=== PATIENT | female | born 2000 | race Caucasian/White ===

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

== ENCOUNTER 2022-01-26 17:00 | Emergency (ER) | payer OTHER, SELFPAY ==
[2022-01-26 17:10] VITALS: BP 136/48; PULSE 99; RESP 16; TEMP 37.1; O2SAT 100
--- NOTE | 2022-01-26 17:30 | ED.URI ---
HPI - URI/Sore Throat General Chief Complaint: Upper Respiratory Infection Stated Complaint: cough Time Seen by Provider: 01/26/22 17:30 Source: patient, RN notes reviewed and old records reviewed Mode of arrival: ambulatory Limitations: no limitations History of Present Illness HPI Narrative: 22-year-old female with a history of asthma presents to the [facility] with a intermittent cough for the last 2 to 3 weeks. Has used her nebulizer a couple of times. States that she does have enough of her nebulizer and her MDI. Denies any difficulty breathing, fevers, nausea, vomiting or chest pain. MD elicited complaint: cough Related Data Home Medications Medication Instructions Recorded Confirmed albuterol sulfate 2.5 mg/3 mL 2.5 mg inhalation DIRECTED 01/26/22 01/26/22 (0.083 %) solution for nebulization albuterol sulfate 90 mcg/actuation 90 mcg inhalation DIRECTED 01/26/22 01/26/22 aerosol inhaler Allergies Allergy/AdvReac Type Severity Reaction Status Date / Time No Known Allergies Allergy Verified 01/26/22 17:14 Review of Systems Review of Systems: All systems reviewed & are unremarkable except as noted in HPI and below Constitutional: Constitutional: Reports no additional constitutional complaints, Denies chills and Denies fever(s) Eyes: Eyes: Reports no additional eye complaints ENT: Reports system reviewed and no additional complaints, except as documented Cardiovascular: Cardiovascular: Reports no additional cardiovascular complaints Respiratory: Respiratory: Reports as per HPI, Denies chest congestion, Reports cough and Denies dyspnea Gastrointestinal: Gastrointestinal: Reports no additional gastrointestinal complaints Musculoskeletal: Musculoskeletal: Reports no additional musculoskeletal complaints Integumentary/Breasts: Skin/Breast: Reports system reviewed and no additional complaints, except as docu Neurologic: Reports system reviewed and no additional complaints, except as documented Psychiatric: Psychiatric: Reports no additional psychiatric complaints Allergic/Immunologic: Allergic/Immunologic: Reports no additional allergic/immunologic complaints PMFSH Past Medical History Medical History Asthma Brooke de Meeks syndrome Social History Social History Smoking status: Never smoker Alcohol intake: never Substance use: never Gender identity (if verbalized by the patient): Female Comments At the time of my signature, I reviewed and agree with the nursing past medical, surgical, social, and family history. There is no relevant family history pertinent to the patient complaint. Exam Const: General: healthy appearing, no acute distress and alert Nutritional Appearance: well nourished Orientation/consciousness: patient oriented x3 Limitations: no limitations HENMT: Head: normal to inspection Ears: external ears normal, TM's normal bilaterally and EAC's normal Eyes: General: appearance normal, both eyes and all related structures Pupils: Equal, round and reactive pupils present Neck: Neck: normal visual inspection, no lymphadenopathy and no meningeal signs Chest: Chest palpation & inspection: normal inspection of the chest Resp: Effort & Inspection: normal respiratory effort and no use of accessory muscles Auscultation: clear to auscultation bilaterally, no crackles, no rales, no rhonchi and wheezes expiratory wheezes and right lower Cardio: Rate: regular rate Rhythm: regular rhythm Back/Spine/Pelvis: Cervical Spine: normal cervical lordosis Thoracic/Lumbar Spine: thoracic and lumbar spine normal to inspection Skin: General skin exam: normal color Rashes: no rashes Wounds: no wounds Neuro: General: patient oriented x3, moves all extremities, no meningeal signs and no focal motor deficits Cranial nerves: Yes Equal, round and reactive pupils present
== END 2022-01-26 17:46 | disposition home or self-care (01) ==
PROVIDERS: Emergency Provider Nurse Practitioner
DX: J45.909 Unspecified asthma, uncomplicated (principal); Q87.19 Other congenital malformation syndromes predominantly associated with short stature
CPT/HCPCS: 99213; G0463

== ENCOUNTER 2022-02-10 16:30 | Emergency (ER) | payer OTHER, SELFPAY ==
--- NOTE | ~2022-02-10 | XR_ITS ---
EXAMINATION: XR chest 1V portable 02/10/2022 17:20 INDICATION: Cough and fever. History of asthma. PROCEDURE: 2 view chest COMPARISON: 07/13/2015 FINDINGS: The lungs are clear. The cardiomediastinal silhouette is within normal limits. There are no pleural effusions. There is no pneumothorax suspected. IMPRESSION: 1: NO ACUTE CARDIOPULMONARY DISEASE. Reviewed, dictated and finalized at location A.
[2022-02-10 16:32] VITALS: BP 136/83; PULSE 112; RESP 20; TEMP 38.1; O2SAT 98
--- NOTE | 2022-02-10 17:06 | ED.FEVER ---
HPI - Fever General Chief Complaint: Fever Stated Complaint: Cough Time Seen by Provider: 02/10/22 16:51 Source: patient and RN notes reviewed Mode of arrival: ambulatory Limitations: no limitations History of Present Illness HPI Narrative: This is a 22 year old female who presents for evaluation of cough for 3 weeks. She reports having nonproductive cough for 3 weeks. She was evaluated at Urgent care 1 week ago and she was prescribed prednisone. She states she is still having a cough. She has mid chest pain only when she coughs. She reports runny nose but denies nausea, vomiting, ear ache, sore throat. She denies shortness of breath. She was found to have fever in ER , and she was not aware of having fever at home. She works at a daycare. Related Data Home Medications Medication Instructions Recorded Confirmed albuterol sulfate 2.5 mg/3 mL 2.5 mg inhalation DIRECTED 01/26/22 01/26/22 (0.083 %) solution for nebulization albuterol sulfate 90 mcg/actuation 90 mcg inhalation DIRECTED 01/26/22 01/26/22 aerosol inhaler Allergies Allergy/AdvReac Type Severity Reaction Status Date / Time No Known Allergies Allergy Verified 02/10/22 16:40 Review of Systems Review of Systems: All systems reviewed & are unremarkable except as noted in HPI and below Constitutional: Constitutional: Denies chills, Denies fatigue and Denies fever(s) ENT: Denies nasal congestion and Denies sore throat Respiratory: Respiratory: Denies chest congestion, Reports cough and Denies dyspnea Gastrointestinal: Gastrointestinal: Denies abdominal pain, Denies diarrhea, Denies nausea and Denies vomiting Genitourinary: Genitourinary: Denies hematuria, Denies nocturia and Denies dysuria Musculoskeletal: Musculoskeletal: Denies back pain and Denies myalgias PMFSH Past Medical History Medical History Asthma Brady de Meeks syndrome Social History Social History Smoking status: Never smoker Alcohol intake: never Substance use: never Gender identity (if verbalized by the patient): Female Exam Const: General: alert Orientation/consciousness: patient oriented x3 Limitations: no limitations HENMT: Ears: TM abnormal erythematous on the left General nose exam: Normal external nose present Mouth: Yes Normal oral and palatal mucosa present and Yes lip normal Throat: posterior oropharynx normal and uvula midline Eyes: Pupils: Equal, round and reactive pupils present EOM: EOMs intact bilaterally Neck: Neck: normal visual inspection Resp: Effort & Inspection: normal respiratory effort Auscultation: clear to auscultation bilaterally Cardio: Rate: regular rate Rhythm: regular rhythm Heart sounds: no murmurs GI: GI Palp: Yes Soft to palpation, No Tenderness to palpation present (GI), No Guarding due to palpation present (GI) and No Rigid due to palpation Auscultation: normal bowel sounds : General: Yes no CVA tenderness Back/Spine/Pelvis: Back: no CVA tenderness Skin: General skin exam: normal color Rashes: no rashes Wounds: no wounds Neuro: General: patient oriented x3, moves all extremities and CN's II-XI intact bilaterally Extrem: General: normal to inspection Psych: Appearance: grossly normal Mental Status: mental status grossly normal Affect: normal affect Attitude: cooperative Course Reevaluation(s) Reevaluation #1: PAtient states she feels fine. Chest xray is clear. she has no abdominal pain, urinary symptoms. her left ear does look infected so will start on antibiotics for that. Date: 02/10/22 Time: 18:38 Vital Signs Vital signs: Vital Signs Temperature 100.6 F H 02/10/22 16:32 Pulse Rate 112 H 02/10/22 16:32 Respiratory Rate 20 02/10/22 16:32 Blood Pressure 136/83 02/10/22 16:32 Pulse Oximetry 98 02/10/22 16:32 Temperature 99.6 F 02/10/22 17:50
[2022-02-10] MEDS: ACETAMINOPHEN 500 MG TABLET 1000 MG PO (17:17)
[2022-02-10 17:50] VITALS: TEMP 37.6
[2022-02-10 18:18] LABS: Influenza A QL RT-PCR Negative (Negative); Influenza B QL RT-PCR Negative (Negative); SARS-CoV-2 RNA PCR Negative
== END 2022-02-10 18:53 | disposition home or self-care (01) ==
PROVIDERS: Emergency Provider General Practice
DX: R05.9 Cough, unspecified (principal); H66.92 Otitis media, unspecified, left ear; Z20.822 Contact with and (suspected) exposure to COVID-19; J45.909 Unspecified asthma, uncomplicated
CPT/HCPCS: 71045; 87081; 87502; 87880; 99283; A9270; C9803; U0003; U0005

== ENCOUNTER 2022-05-19 20:19 | Emergency (ER) | payer OTHER, SELFPAY ==
[2022-05-19 21:08] VITALS: BP 135/92; PULSE 91; RESP 14; TEMP 37.6; O2SAT 100
--- NOTE | 2022-05-20 00:04 | ED.GENADULT ---
HPI - General Adult General Chief complaint: Eye Problems Stated complaint: right eye redness Time Seen by Provider: 05/19/22 23:39 History of Present Illness HPI narrative: Is a 22-year-old female who presents the emergency department with chief complaint of right eye redness. Patient reports that she had no visual changes but reports she has had some discharge and has had injection of her conjunctive on the right eye. The patient states that there is no foreign body sensation but does report that her eye itches. The patient reports she has normal vision without eye patient reports no trauma reports that she was recently seen in urgent care and diagnosed with cellulitis of her left upper extremity and has been taking what she believes is Keflex 3 times a day. The patient reports no nasal drainage denies pain in her eye. Related Data Home Medications Medication Instructions Recorded Confirmed albuterol sulfate 2.5 mg/3 mL 2.5 mg inhalation DIRECTED 01/26/22 01/26/22 (0.083 %) solution for nebulization albuterol sulfate 90 mcg/actuation 90 mcg inhalation DIRECTED 01/26/22 01/26/22 aerosol inhaler Allergies Allergy/AdvReac Type Severity Reaction Status Date / Time No Known Allergies Allergy Verified 02/10/22 16:40 Review of Systems Review of Systems: A 10 system review of systems was completed on the patient and is negative except for what is stated in the HPI. Nursing and ancillary documentation was reviewed. [facility] Past Medical History Medical History Asthma Moberly de Meeks syndrome Social History Social History Smoking status: Never smoker Alcohol intake: never Substance use: never Gender identity (if verbalized by the patient): Female Exam Narrative: GENERAL: Well-appearing, well-nourished, and in no acute distress. HEAD: Normocephalic, atraumatic. EYES: PERRLA and EOMI. right eye conjunctive a is injected. There is some matting of the eyelashes. Pupils reactive ENT: Nares clear, no rhinorrhea or epistaxis. Mucous membranes moist. NECK: Supple. CHEST: Clear to auscultation. No respiratory distress. HEART: Regular rate and rhythm. No murmur heard. Normal peripheral pulses. ABDOMEN: Soft, nontender, nondistended, normal active bowel sounds. EXTREMITIES: Normal range of motion. No edema. SKIN: Warm, dry, no rash. NEURO: No focal deficits. Alert and oriented x3. PSYCH: Normal mood and affect. Course Course Emergency Course: Tonometry was done on both eyes and the patient had a pressure of 15 in both eyes Vital Signs Vital signs: Vital Signs Temperature 37.6 C 05/19/22 21:08 Pulse Rate 91 05/19/22 21:08 Respiratory Rate 14 05/19/22 21:08 Blood Pressure 135/92 H 05/19/22 21:08 Pulse Oximetry 100 05/19/22 21:08 Oxygen Delivery Room Air 05/19/22 21:08 Temperature 37.6 C 05/19/22 21:08 Pulse Rate 91 05/19/22 21:08 Respiratory Rate 14 05/19/22 21:08 Blood Pressure 135/92 H 05/19/22 21:08 Pulse Oximetry 100 05/19/22 21:08 Oxygen Delivery Room Air 05/19/22 21:08 Medical Decision Making Vital Signs Vital Signs: Vital Signs Temperature 37.6 C 05/19/22 21:08 Pulse Rate 91 05/19/22 21:08 Respiratory Rate 14 05/19/22 21:08 Blood Pressure 135/92 H 05/19/22 21:08 Pulse Oximetry 100 05/19/22 21:08 Oxygen Delivery Room Air 05/19/22 21:08 Temperature 37.6 C 05/19/22 21:08 Pulse Rate 91 05/19/22 21:08 Respiratory Rate 14 05/19/22 21:08 Blood Pressure 135/92 H 05/19/22 21:08 Pulse Oximetry 100 05/19/22 21:08 Oxygen Delivery Room Air 05/19/22 21:08 Discharge Plan Discharge Clinical Impression: Acute conjunctivitis of right eye Patient Disposition: Home, Self-Care Condition: Stable Instructions: Antibiotic Form, Conjunctivitis (ED) Prescriptions: New
[2022-05-20 00:37] VITALS: PULSE 89; RESP 18; O2SAT 97
[2022-05-20 00:41] VITALS: PULSE 88; RESP 18; O2SAT 100
== END 2022-05-20 00:51 | disposition home or self-care (01) ==
PROVIDERS: Emergency Provider Emergency Medicine; PCP Family Medicine
DX: H10.31 Unspecified acute conjunctivitis, right eye (principal); J45.909 Unspecified asthma, uncomplicated; Q87.19 Other congenital malformation syndromes predominantly associated with short stature
CPT/HCPCS: 99283; A9270

== ENCOUNTER 2023-01-10 16:34 | Emergency (ER) | payer OTHER, SELFPAY ==
--- NOTE | 2023-01-10 16:38 | ED.URI ---
HPI - URI/Sore Throat General Chief Complaint: Upper Respiratory Infection Stated Complaint: Cough Time Seen by Provider: 01/10/23 16:43 Source: patient, RN notes reviewed and old records reviewed Mode of arrival: ambulatory Limitations: no limitations History of Present Illness HPI Narrative: 22-year-old female presents to the [facility] with a cough for 2 weeks. States that she took some Mucinex with no relief. At 1st denied any other treatment prior to arrival. Related Data Allergies Allergy/AdvReac Type Severity Reaction Status Date / Time No Known Allergies Allergy Verified 01/10/23 16:44 Review of Systems Review of Systems: All systems reviewed & are unremarkable except as noted in HPI and below Constitutional: Constitutional: Reports no additional constitutional complaints Eyes: Eyes: Reports no additional eye complaints ENT: Reports system reviewed and no additional complaints, except as documented Cardiovascular: Cardiovascular: Reports no additional cardiovascular complaints, Denies chest pain and Denies dyspnea Respiratory: Respiratory: Reports as per HPI, Denies chest congestion, Reports cough, Denies dyspnea and Denies wheezing Gastrointestinal: Gastrointestinal: Reports no additional gastrointestinal complaints, Denies abdominal pain, Denies nausea and Denies vomiting Musculoskeletal: Musculoskeletal: Reports no additional musculoskeletal complaints Integumentary/Breasts: Skin/Breast: Reports system reviewed and no additional complaints, except as docu Neurologic: Reports system reviewed and no additional complaints, except as documented Psychiatric: Psychiatric: Reports no additional psychiatric complaints Allergic/Immunologic: Allergic/Immunologic: Reports no additional allergic/immunologic complaints PMFSH Past Medical History Medical History Asthma Brooke de Meeks syndrome Social History Social History Smoking status: Never smoker Alcohol intake: never Substance use: never Gender identity (if verbalized by the patient): Female Comments At the time of my signature, I reviewed and agree with the nursing past medical, surgical, social, and family history. There is no relevant family history pertinent to the patient complaint. Exam Const: General: cooperative, healthy appearing, comfortable, no acute distress, well developed, alert and well nourished Nutritional Appearance: well nourished and obese Orientation/consciousness: patient oriented x3 Limitations: no limitations HENMT: Head: normal to inspection Ears: hearing grossly normal bilaterally and external ears normal Face/Nose/Sinus: Normal external nose present, Normal nares present, Normal nasal mucous membranes and turbinates present and normal facial exam Face and sinus: normal facial exam Mouth: Yes Normal oral and palatal mucosa present, Yes lip normal and Yes moist mucous membranes Throat: posterior oropharynx normal, uvula midline and postnasal drainage Eyes: General: appearance normal, both eyes and all related structures Alignment and Position: alignment normal Periorbital: periorbital findings normal Pupils: Equal, round and reactive pupils present EOM: EOMs intact bilaterally Neck: Neck: normal visual inspection, full ROM, no lymphadenopathy and no meningeal signs Chest: Chest palpation & inspection: normal inspection of the chest Resp: Effort & Inspection: normal respiratory effort and able to speak in complete sentences Auscultation: clear to auscultation bilaterally, no crackles, no rales, no rhonchi and no wheezes Cardio: Rate: regular rate Rhythm: regular rhythm Back/Spine/Pelvis: Cervical Spine: cervical ROM normal Thoracic/Lumbar Spine: No thoracic spinal tenderness Skin: General skin exam: normal color and no rashes or lesions noted Lesions: no lesions Rashes: no rashes Wounds: no wounds
[2023-01-10 16:42] VITALS: BP 124/66; PULSE 79; RESP 16; TEMP 37.3; O2SAT 100
[2023-01-10 16:44] VITALS: BP 124/66; PULSE 79; RESP 16; TEMP 37.3; O2SAT 100
== END 2023-01-10 16:56 | disposition home or self-care (01) ==
PROVIDERS: Emergency Provider Nurse Practitioner; PCP Family Medicine
DX: J40 Bronchitis, not specified as acute or chronic (principal); R09.82 Postnasal drip
CPT/HCPCS: 99213; G0463

== ENCOUNTER 2023-03-07 18:09 | Emergency (ER) | payer BC, SELFPAY ==
[2023-03-07 18:19] VITALS: BP 136/88; PULSE 74; RESP 16; TEMP 37.4; O2SAT 99
--- NOTE | 2023-03-07 18:29 | ED.GENADULT ---
HPI - General Adult General Chief complaint: Dental/Oral Stated complaint: right side tooth pain Time Seen by Provider: 03/07/23 18:29 Source: patient, RN notes reviewed and old records reviewed Mode of arrival: ambulatory Limitations: no limitations History of Present Illness HPI narrative: 23-year-old female presents to the [facility] with right-sided jaw pain. Patient states that it started with her right ear yesterday, moved to the left side for little while when she rolled over at night in moved back to the right lower jaw. No swelling or erythema currently. Onset (ago): day(s) (1) Related Data Allergies Allergy/AdvReac Type Severity Reaction Status Date / Time No Known Allergies Allergy Verified 03/07/23 18:18 Review of Systems Review of Systems: All systems reviewed & are unremarkable except as noted in HPI and below Constitutional: Constitutional: Reports no additional constitutional complaints Eyes: Eyes: Reports no additional eye complaints ENT: Reports as per HPI Cardiovascular: Cardiovascular: Reports no additional cardiovascular complaints, Denies chest pain and Denies dyspnea Respiratory: Respiratory: Reports no additional respiratory complaints, Denies chest congestion, Denies cough and Denies dyspnea Gastrointestinal: Gastrointestinal: Reports no additional gastrointestinal complaints, Denies abdominal pain, Denies nausea and Denies vomiting Musculoskeletal: Musculoskeletal: Reports no additional musculoskeletal complaints Integumentary/Breasts: Skin/Breast: Reports system reviewed and no additional complaints, except as docu Neurologic: Reports system reviewed and no additional complaints, except as documented Psychiatric: Psychiatric: Reports no additional psychiatric complaints Allergic/Immunologic: Allergic/Immunologic: Reports no additional allergic/immunologic complaints PMFSH Past Medical History Medical History Asthma [place] syndrome Social History Social History Smoking status: Never smoker Alcohol intake: never Substance use: never Gender identity (if verbalized by the patient): Female Comments At the time of my signature, I reviewed and agree with the nursing past medical, surgical, social, and family history. There is no relevant family history pertinent to the patient complaint. Exam Const: General: cooperative, healthy appearing, comfortable, no acute distress, well developed, alert and well nourished Nutritional Appearance: well nourished Orientation/consciousness: patient oriented x3 Limitations: no limitations HENMT: Head: normal to inspection Ears: hearing grossly normal bilaterally, external ears normal, TM's normal bilaterally and EAC's normal Face/Nose/Sinus: Normal external nose present, Normal nares present, Normal nasal mucous membranes and turbinates present and normal facial exam Face and sinus: normal facial exam, sinuses nontender and face symmetric Mouth: Yes Normal oral and palatal mucosa present, Yes lip normal, Yes tongue normal and Yes moist mucous membranes Throat: posterior oropharynx normal and uvula midline Eyes: General: appearance normal, both eyes and all related structures Alignment and Position: alignment normal Periorbital: periorbital findings normal Pupils: Equal, round and reactive pupils present EOM: EOMs intact bilaterally Neck: Neck: normal visual inspection, full ROM, no lymphadenopathy and no meningeal signs Chest: Chest palpation & inspection: normal inspection of the chest Resp: Effort & Inspection: normal respiratory effort and able to speak in complete sentences Auscultation: clear to auscultation bilaterally, no crackles, no rales, no rhonchi and no wheezes Cardio: Rate: regular rate Rhythm: regular rhythm Back/Spine/Pelvis: Cervical Spine: cervical ROM normal Skin: General skin exam: normal col
== END 2023-03-07 18:56 | disposition home or self-care (01) ==
PROVIDERS: Emergency Provider Nurse Practitioner; PCP Family Medicine
DX: R68.84 Jaw pain (principal); J45.909 Unspecified asthma, uncomplicated
CPT/HCPCS: 99211; G0463

== ENCOUNTER 2025-01-15 14:13 | Emergency (ER) | payer BC, SELFPAY ==
--- OUTSIDE RECORDS SUMMARY | 2025-01-15 14:19 | XMS_ITS | Clinical Summary ---
Author Organization [facility] [address] Address [address] [place] [address] Care Team Providers Care Test Driver Name Role Phone Randall Leong MD Primary Care Provider [phone] Allergies No known active allergies Medications albuterol HFA (PROVENTIL HFA,VENTOLIN HFA,PROAIR HFA) 90 mcg/actuation inhaler Inhale 2 puffs every 4 (four) hours as needed 7 Active etonogestreL (NEXPLANON) 68 mg implant Inject 1 each (68 mg total) under the skin continuously as needed 9 Active OptiChamber Marilin [facility] spacer as directed 2 Active budesonide-form oteroL (SYMBICORT) 160-4.5 mcg/actuation inhaler Inhale 2 puffs 2 (two) times a day Rinse mouth with water after use. Do not swallow. 9500 g 2 2 Active Additional Information Patient not taking.Reported on 12/31/2024 Active Problems Problem Noted Date Diagnosed Date Morbid obesity with BMI of 40.0-44.9, adult 07/04 Otitis externa 05/09/2023 Assessment & Plan (01/05/2025 2:42 PM CDT): She has slight moisture involving the left ear canal. After cleaning I applied CSF powder to that ear. Told him to keep it dry. Follow up if there are any problems. Assessment & Plan (05/09/2023 5:35 PM RN RADIOLOGY): She has an active infection on the left side. Most of the canal and some of the tympanic membrane is inflamed. I do not see a perforation but there does appear to be a slight amount of granulation tissue in the area of the attic. I am going to treat her with a course of Ceftin and Cortisporin suspension and re-evaluate in a month. Dysfunction of eustachian tube 05/09/2023 Assessment & Plan (05/09/2023 5:36 PM RN RADIOLOGY): On the right side she has either an attic perforation or a significant retraction pocket. I do not see any evidence keratin debris so I think is probably a perforation. In any case I am recommending that she keep the right ear dry. Overall I may recommend referral to otology for further management. Bilateral impacted cerumen 10/03/2022 Assessment & Plan (01/05/2025 2:43 PM CDT): Both ears were significantly impacted with wax. This was cleaned without difficulty. Should facilitate her hearing aid use. Assessment & Plan (10/03/2022 7:02 PM CDT): Both ears were cleaned without difficulty. This may facilitate use of her hearing aids. I recommended no further intervention. Chronic eczematous otitis externa of both ears 0 10/03/2022 Assessment & Plan (10/03/2022 7:02 PM CDT): She does have significant moisture noticed on the left side and this was removed using suction. I am going to start her on Cortisporin suspension. She has further problems I am recommending follow-up that time. Otherwise I will see her as needed. Chronic cough 04/13/2022 Labial hypertrophy 06/01/2020 PDA (patent ductus arteriosus) 06/01/2020 Overview (06/01/2020): PDA coiled at age 7 years, seen by Dr. Mancilla 02/14/11, should f/u in 2-3 years Chronic mucoid otitis media of both ears 020 Leg length difference, acquired 11/13/2012 KATIE (obstructive sleep apnea) 12/26/2011 Sensorineural hearing loss ( SNHL) of left ear with restricted hearing of right ear 03/02/2010 Assessment & Plan (01/05/2025 2:42 PM CDT): No significant change in her hearing. I recommended continued amplification. Assessment & Plan (05/09/2023 5:34 PM RN RADIOLOGY): She has pretty significant bilateral hearing loss. Essentially deaf on the left side. She is doing okay with a BICROS system however I think she might benefit from a cochlear implant. I talked with her and her mother about this. She really was not interested in pursuing this when she was younger. We will revisit this issue when I see her in a month. Assessment & Plan (10/03/2022 7:03 PM CDT): She is had no subjective changes in her hearing. I have recommended that she continue with amplification. 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 Sensorineural hearing loss (SNHL), bilateral (Primary Dx) 12/31/2024 3:00 PM CDT Office Visit [facility] Otolaryngology [address] [place] [address] [phone] Zak Holden MD Sensorineural hearing loss (SNHL) of left ear with restricted hearing of right ear (Primary Dx); Other infective chronic otitis externa of left ear; Bilateral impacted cerumen from Last 3 Months Immunizations Immunization Administration Dates Next Due DTP / HiB 2001,2001,2001 DTaP 02/21/2006, 3,2001,06/11,2001 H1N1 All Forms 06/13/2009 H1N1 Inj 06/13/2009 HPV, Quadrivalent 06/28/2013,02/28/2013,12/28/19 13 Hep A, Pediatric 02/12/2008,01/29/2007 Hep B, Adolescent or Pediatric 2001,2000,2001 Hib (PRP-D) 06/02/2003, 2,2001,04/09 IPV 02/21/2006, 3,2001,04/30 Influenza LAIV (Nasal) 04/02/2023(Deferred: Anjelica ent decision) Influenza, Quadrivalent, Maxine l Culture-based MDCK, Preservative Free, Antibiotic Free, Intramuscular 07/17/2021 Influenza, Quadrivalent, Spl it, Preservative Free, Intramuscular 05/05/2020,04/22/2014,05/13/2013 Influenza, Trivalent, IM (MDV) 04/24/2012 Influenza, Trivalent, Preser vative Free, Intramuscular 04/25/2024 Influenza, Unspecified 07/26/2023(Deferr ed: Patient Refused),04/02/2023(Deferred: Patient decision),04/15/2019,05/10/2007 MMR 02/21/2006,07/16/2002 Meningococcal MCV4P (Menactra) 10/23/2017,2012 Pneumococcal Conjugate 7-Valent 08/19/19 03,07/16/2002,2001,10/02,2001,2001 Tdap 12/27/2012 Varicella 02/12/2008,08/19/2002 Surgical History Surgery Date Site/Laterality Comments MYRINGOTOMY W/ TUBES no longer has them ADENOIDECTOMY W/ MYRINGOTOMY AND TUBES TONSILLECTOMY HIP SURGERY KNEE SURGERY PATENT DUCTUS ARTERIOUS LIGATION PDA COILED, Age 7 Medical History Medical History Date Comments Asthma HL (hearing loss) Allergic rhinitis Family History Medical History Relation Name Comments No Known Problems Brother 1 No Known Problems Brother 2 No Known Problems Brother 3 No Known Problems Father Diabetes Maternal Grandmother No Known Problems Mother Relation Name Status Comments Brother 1 Alive Brother 2 Alive Brother 3 Alive Father Alive Maternal Grandmother Mother Alive Social History Tobacco Use Types Packs/Day Years Used Date Smoking Tobacco: Never Smokeless Tobacco: Never Tobacco Cessation:Counseling Given: Not Answered Alcohol Use Standard Drinks/Week Comments Never 0 (1 standard drink = 0.6 oz pur e alcohol) AUDIT-C Answer Date Recorded Q1: How often do you have a drink containing alc ohol? Never 09/05/2019 Average Number of Drinks Not on file 020 Frequency of Binge Drinking Not on file 11/2019 PHQ-2 Answer Date Recorded PHQ-2 Total Score (If total score is 3 or more points, staff should administer the PHQ-9) 0 05/16/2024 Comments No Sex and Gender Information Value Date Recorded Sex Assigned at Not on file Legal Sex Female 12:54 AM RN RADIOLOGY Gender Identity Not on file Sexual Orientation Not on file Obstetrics History Last Filed Vital Signs Vital Sign Reading Time Taken Comments Blood Pressure 136/74 05/16/2024 2:07 PM RN RADIOLOGY Pulse 98 05/16/2024 2:07 PM RN RADIOLOGY Temperature 36.3 C (97.3 F) 05/16/2024 2:07 PM RN RADIOLOGY Respiratory Rate 18 12/31/2024 3:12 PM CDT Oxygen Saturation 99% 05/16/2024 2:07 PM RN RADIOLOGY Inhaled Oxygen Concentration - - Weight 77.1 kg (170 lb) 12/31/2024 3:12 PM CDT Height 144.8 cm (4' 9) 12/31/2024 3:12 PM CDT Body Mass Index 36.79 12/31/2024 3:12 PM CDT Plan of Treatment Health Maintenance Due Date Last Done Comments Cervical Cancer Screening 2001 Hepatitis C Screening 2001 Meningococcal B Vaccine (1 o f 2 - Standard) 2017 DTaP/Tdap/Td Vaccine (7 - Td or Tdap) 12/27/2022 12/27/2012, 02/21/2006, 08/19/2002, Additional history exists Regular Well Visit/Exam 18-64 08/04/2023 08/04/2022 Covid-19 Vaccine (3 - 2023-2 5 season) 2024 07/17/2021, 09/10/2020 Influenza Vaccine (#1) 2025 , 07/17/2021, 05/05/2020, Additional history exists Depression Screening 05/16/2025 05/16/2024, 11/24/2023, 11/10/2023, Additional history exists Hepatitis B Screening Completed 2001 , 2001, 2001 Pneumococcal vaccine <65 Completed 003, 07/16/2002, 2001, Additional history exists Varicella Vaccines Completed 02/12/2008, 08/19/2002 HPV Vaccines Completed 06/28/2013, 02/01, 12/27/2012 [place] Care Teams Test Driver Relationship Specialty Start Date End Date Randall Leong MD PCP - General 07/06/20
--- OUTSIDE RECORDS SUMMARY | 2025-01-15 14:19 | XMS_ITS | Referral Summary ---
Author Organization [facility] [address] Address [address] [place] [id number] Care Team Providers Care Washer Engineer Helper Name Role Phone Randall Leong MD Primary Care Provider [phone] Encounters Date Type Department Care Team Description 12/31/2024 3:15 PM CDT Procedure visit [facility] Otolaryngology [address] [place] [phone] Tammy Abdul Au.D. Sensorineural hearing loss (SNHL), bilateral (Primary Dx) 12/31/2024 3:00 PM CDT Office Visit [facility] Otolaryngology [address] [place] [phone] Zak Holden MD Sensorineural hearing loss (SNHL) of left ear with restricted hearing of right ear (Primary Dx); Other infective chronic otitis externa of left ear; Bilateral impacted cerumen from Last 3 Months Allergies No known active allergies Medications albuterol HFA (PROVENTIL HFA,VENTOLIN HFA,PROAIR HFA) 90 mcg/actuation inhaler Inhale 2 puffs every 4 (four) hours as needed 7 Active etonogestreL (NEXPLANON) 68 mg implant Inject 1 each (68 mg total) under the skin continuously as needed 9 Active OptiChamber Marilin [facility] spacer as directed 2 Active budesonide-form oteroL [...] problems. Assessment & Plan (05/09/2023 5:35 PM JEWEL FLAT SURFACER): She has an active infection on the [...] 05/09/2023 Assessment & Plan (05/09/2023 5:36 PM JEWEL FLAT SURFACER): On the right side she has either [...] amplification. Assessment & Plan (05/09/2023 5:34 PM JEWEL FLAT SURFACER): She has pretty significant bilateral hearing loss. [...] amplification. 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 Resolved Problems Problem Noted Date Diagnosed Date Resolved Date Annual physical exam 08/04/2022 024 Immunizations Immunization Administration Dates Next Due DTP [...] 7-Valent 08/19/19 03,07/16/2002,2001,10/02,2001,2001 Tdap 12/27/2012 Varicella 02/12/2008,08/19/2002 Social History Tobacco Use Types Packs/Day Years [...] on file Legal Sex Female 12:54 AM JEWEL FLAT SURFACER Gender Identity Not on file Sexual Orientation Not on file Last Filed Vital Signs Vital Sign Reading Time Taken Comments Blood Pressure 136/74 05/16/2024 2:07 PM JEWEL FLAT SURFACER Pulse 98 05/16/2024 2:07 PM JEWEL FLAT SURFACER Temperature 36.3 C (97.3 F) 05/16/2024 2:07 PM JEWEL FLAT SURFACER Respiratory Rate 18 12/31/2024 3:12 PM CDT Oxygen Saturation 99% 05/16/2024 2:07 PM JEWEL FLAT SURFACER Inhaled Oxygen Concentration - - Weight 77.1 kg (170 lb) 12/31/2024 3:12 PM CDT Height 144.8 cm (4' 9) 12/31/2024 3:12 PM CDT Body Mass Index 36.79 12/31/2024 3:12 PM CDT Plan of Treatment Not on file [place] Care Teams Washer Engineer Helper Relationship Specialty Start Date End Date Randall Leong MD PCP - General 07/06/20
--- OUTSIDE RECORDS SUMMARY | 2025-01-15 14:19 | XMS_ITS | Clinical Summary ---
Author Organization [facility] [employer] Address [address] [place] [address] Care Team Providers Care Manager Academic Name Role Phone Randall Leong MD Primary Care Provider [phone] [facility] [employer],non-owned Affiliates and Associated Physician Practices is amultiple site organization consisting of ambulatory clinics and hospital sitesin [place], [place], [place] and [place]. This disclosure is being madepursuant to the Care Everywhere program and may not contain all information available regarding this patient. Last updated 18.[facility] [employer] Allergies No known active allergies Medications * Be aware that medications may not be up to date on this document. Alwaysverify current medications with the patient. albuterol HFA (VENTOLIN HFA) 8 gram inhaler Inhale 2 (two) puffs by mouth every 4 hours as needed for Shortness of Breath, Wheezing or Cough 18 g 1 2 Active albuterol (PROVENTIL;VENT DAVID) (2.5 MG/3ML) 0.083% nebulizer solution Inhale 2.5 (two and one-half) mg by mouth every 4 hours as needed for Shortness of Breath 75 mL 2 Active etonogestrel (Nexplanon) 68 MG implant 68 (sixty eight) mg by Subdermal route as directed Old one removed, this one placed 10/05/2022 left arm, good through 10/05/2026 (4 years) 3 Active Active Problems Problem Noted Date Diagnosed Date left Genu valgum 11/13/2012 Leg length difference, acquired 11/13/2012 Tonsillar and adenoid hypertrophy 12/26/2011 KATIE (obstructive sleep apnea) 12/26/2011 Difficult intubation 12/26/2011 Hearing loss, conductive 03/02/2010 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 Mancilla 02/14/11, should f/u in 2-3 years Resolved Problems Problem Noted Date Diagnosed Date Resolved Date Otorrhea 03/02/2010 11/11/2011 Immunizations Immunization Administration Dates Next Due INFLUENZA VACCINE, TRIV. (AF LURIA, FLUZONE TRIVALENT; 6MO+) (IIV3) 04/24/2012 COVID KATYA PRIMARY 18+YR 09/10/2020 Covid Ommven primary monoval ent 12+ yr 0.3mL Purple cap 07/17/2021 DTaP VACCINE IM (6wk-6yrs) 02/21/2006,,2001,06/11,2001 HEP A PEDS 2 DOSE 02/12/2008,01/29/2007 HEP B VACCINE, PED/ADOL 2001,2001, HIB BOOSTER 06/02/2003, 2,2001,04/09 Human Papilloma Virus Susan valent Vaccine 06/28/2013,02/28/2013,12/27/2012 INFLUENZA A D9S2-59 VACCINE 06/13/2009 INFLUENZA VACCINE 04/15/2019,05/10/2007 INFLUENZA VACCINE, QUADR. (F LUZONE; FLULAVAL; FLUARIX; AFLURIA QUADRIVALENT; 6MO+), 0.5 ML (IIV4) 05/05/2020,04/22/2014,05/13/2013 MENINGOCOCCAL ACWY (MCV4P) VAC IM 10/23/2017, MMR 02/21/2006,07/16/2002 PNEUMOCOCCAL CONJ, PEDS 08/19/2002,07/16,2001,04/30 POLIO IPV 02/21/2006, 3,2001,04/30 TDAP (7yrs+) 12/27/2012 VARICELLA 02/12/2008,08/19/2002 Family History Medical History Relation Name Comments Anesthesia Reaction Neg Hx Social History Tobacco Use Types Packs/Day Years Used Date Smoking Tobacco: Never Smokeless Tobacco: Never Tobacco Cessation:Counseling Given: Not Answered Alcohol Use Standard Drinks/Week Comments No 0 (1 standard drink = 0.6 oz pur e alcohol) Comments No Sex and Gender Information Value Date Recorded Sex Assigned at Not on file Legal Sex Female 5:40 AM THROW OUT CLERK Gender Identity Female 05/03/2017 8:43 AM CDT Sexual Orientation Not on file Last Filed Vital Signs Vital Sign Reading Time Taken Comments Blood Pressure 122/82 10/23/2023 2:47 PM CDT Pulse 95 03/16/2022 12:08 PM CDT Temperature 36.6 C (97.8 F) 07/24/2021 9:47 AM THROW OUT CLERK Respiratory Rate 29 02/25/2021 12:41 AM CDT Oxygen Saturation 99% 03/16/2022 12:08 PM CDT Inhaled Oxygen Concentration - - Weight 88.5 kg (195 lb) 10/23/2023 2:47 PM CDT Height 144.8 cm (4' 9) 10/23/2023 2:47 PM CDT Body Mass Index 42.2 10/23/2023 2:47 PM CDT Plan of Treatment Health Maintenance Due Date Last Done Comments HIV SCREENING 01/20/2016 MENINGOCOCCAL (Group B) VACC INE SHARED DECISION-MAKING (1 of 2 - Standard) 2017 HEPATITIS C SCREENING 01/15/2019 DTAP/TDAP/TD VACCINES (7 - T d or Tdap) 12/27/2022 12/27/2012, 02/21/2006, 08/19/2002, Additional history exists CHLAMYDIA/GONORRHEA SCREENING 03/16/2023 03/16/2022, 03/10/2021 COVID-19 VACCINE (3 2023-2 5 season) 2024 07/17/2021, 09/10/2020 DEPRESSION SCREENING 07/03/2024 INFLUENZA VACCINE (#1) 2025 , 05/05/2020, 04/15/2019, Additional history exists PAP SMEAR 10/22/2026 10/23/2023, 03/16/2022 ZOSTER VACCINE (1 of 2) 2051 HEPATITIS B VACCINE Completed 2001, 2001, 2001 PNEUMOCOCCAL VACCINE Completed 08/19/2002, 07/16/2002, 2001, Additional history exists HIB VACCINE Completed 06/02/2003, 11/01, 2001, Additional history exists HPV VACCINE Completed 06/28/2013, 02/01, 12/27/2012 MENINGOCOCCAL GROUPS A/C/Y/W VACCINE Completed 10/23/2017, 12/27/2012 Goals Goal Patient Goal Type Associated Problems Recent Progress Patient-Stated? Author Reduce calorie Diet On track( 019 3:57 PM CDT) No Chiquis Rose MD Note: Caring for Your Overweight Child Eating a healthy diet: Think of the food your child eats in terms of GO, SLOW, and WHOA foods. They can enjoy GO foods almost any time they like. Limit SLOW foods to certain occasions, no more than a few times per week. And enjoy WHOA foods only on special occasions, and then eat only a small portion. GO foods include low-fat, low-calorie foods that are also low in added sugar. They tend to be rich in nutrients, such as vitamins, minerals, and other healthy substances. Fresh fruits and vegetables are great examples of GO foods. That said, fried vegetables and fruits canned in syrup, despite their vital ingredients, fall into the category of WHOA foods. Be sure to stock up on GO foods so that you can offer a variety of foods to keep things interesting. SLOW foods tend to be higher in fat and added sugar than GO foods are. Examples include fruit juices, baked goods made with white, refined flour; and poultry cooked with the skin still on. WHOA foods are the highest in fat and added sugar. Foods prepared with heavy creams and butter, fried foods, and fatty meats are examples of foods your child should only eat once in a while. One way to identify unhealthy eating triggers is for your child to keep a journal, in which they writes down the food they ate, where they ate it, the time of day and - extremely important - the reasons for eating. Did they devour two slices of meatball pizza after school because they were truly hungry or because they simply wanted to hang out at the pizza parlor with their friends? If they give the latter reason, perhaps next time the group can split a pizza and she could consciously choose to n urse a single slice, even if everyone else grabs two. Where can I go for more information? [place] [employer] ( ) www.aap.org, HealthyChildren.org www.healthychildren.org Website and free downloadable tate for smartphones: http://www.testbirds/ Use safety retraint in car Lifestyle On track( 019 3:57 PM CDT) No Sabrina Hernandez RN Medical Devices Implanted Type Area Tow Truck Driver Device Identifier Shelf Expiration Date Model / Serial / Lot Wire Gde Thrd Tip 3.2mm Implanted:Qty: 1 on 11/13/2012 by Hao Wilkes MD at [facility] Left: Leg [employer] / / Nail Fem Im Lt 8.0mm X 32cm Implanted:Qty: 1 on 11/13/2012 by Hao Wilkes MD at [facility] Left: Leg [employer] 08 / / 4.5 Screw Implanted:Qty: 1 on 11/13/2012 by Hao Wilkes MD at [facility] Left: Leg [id number] / / 4.5 Screw Implanted:Qty: 1 on 11/13/2012 by Hao Wilkes MD at [facility] [id number] / / Scrw Иван 4.5mm X 44mm Implanted:Qty: 1 on 11/13/2012 by Hao Wilkes MD at [facility] Left: Leg [employer] [id number] / / Screw Implanted:Qty: 1 on 11/13/2012 by Hao Wilkes MD at [facility] [id number] / / Pin Tin Half Sh 5mm X 30mm Implanted:Qty: 2 on 11/13/2012 at [facility] [employer] [id number] / / Pin Half Tin Ln 5.0mm X 45mm Implanted:Qty: 1 on 11/13/2012 at [facility] [employer] [id number] / / Procedures Procedure Name Priority Date/Time Associated Diagnosis Comments PAP IMAGE-GUIDED RFLX HPV Routine 10/23/2023 2:50 PM CDT Encounter for gynecological examination with abnormal finding C. TRACHOMATIS + N. GONORRHOEAE MARLENE Routine 03/16/2022 12:44 PM CDT Encounter for annual routine gynecological examination Screen for STD (sexually transmitted disease) from Last 3 Months or Most Recently Relevant to Health Maintenance Results * PAP IMAGE-GUIDED RFLX HPV (10/23/2023 2:50 PM CDT) Case Report Gynecologic Cytology Report Case: [id number] Authorizing Provider: Mere Lazaro MD Collected: 10/23/2023 02:50 PM Ordering Location: [facility] - Received: 10/24/2023 12:02 PM SYSTEMATIC THEOLOGY PROFESSOR First Screen: Mikey Alva Pathologist: Osiel Ferreira MD Specimen: THINPREP - IMAGE GUIDED, Cervicovaginal 10/26/2023 9:46 AM CDT [facility] LMP 08/25/2023 10/26/2023 9:46 AM CDT [facility] Menstrual Status Oral Contraceptives 10/26/2023 9:46 AM CDT [facility] Specimen Adequacy Satisfactory for evaluation, endocervical/trans formation zone component absent. 10/26/2023 9:46 AM CDT [facility] Categorization Epithelial cell abnormality. 10/26/2023 9:46 AM CDT [facility] Interpretation FAN RUNNER Atypical squamous cells of undetermined significance (ASC-US). 10/26/2023 9:46 AM CDT [facility] at 0945 CDT Other Predominance of Coccobacilli consistent with shift in vaginal yuri (vaginosis). 10/26/2023 9:46 AM CDT [facility] Pap Footnote The Pap Smear is a screening test. False positive and false negative results occur. Negative results do not preclude abnormalities, thus clinical correlation is required. This specimen was evaluated by the ThinPrep Imaging System along with an additional manual rescreening by a product management analyst and/or pathologist. 10/26/2023 9:46 AM CDT [facility] Pathology/Cytolo gy VAGINA AND CERVIX, CS / Unknown 10/23/2023 2:50 PM CDT 10/24/2023 12:02 PM CDT Mere Lazaro MD LAB - PATHOLOGY/CYTOLOGY ORDERA BLES Final Result [facility] [address] [phone] * C. TRACHOMATIS + N. GONORRHOEAE MARLENE (03/16/2022 12:44 PM CDT) Chlamydia Trachomatis MARLENE Not detected Not detected 03/23/2022 7:17 AM CDT [facility] Neisseria Gonorrhoeae MARLENE Not detected Not detected 03/23/2022 7:17 AM CDT [facility] Pathology/Cytolo gy MISCELLANEOUS SAMPLES / Unknown 03/16/2022 12:44 PM CDT 03/17/2022 12:30 PM CDT Narrative [facility] - 03/23/2022 7:17 AM CDT This analysis was performed using Gen-Probe Aptima Combo 2. This methodology is U.S. FDA approved for Chlamydia trachomatis and Neisseria gonorrhoeae testing for urine and urogenital swabs from men and women, and cervical cells submitted in ThinPrep vials. Performance characteristics for rectal and pharyngeal swabs were determined by the [facility] at [facility]. Testing by Gen-Probe Aptima Combo 2 on these sample types has not been cleared or approved by the U.S. FDA. The FDA has determined that such clearance approval is not necessary. This test is used for clinical purposes and should not be regarded as investigational or for research. This laboratory is certified under the Clinical Laboratory Improvements Amendments of 1988 (CLIA 1988), as qualified to perform high complexity laboratory testing. Mere Lazaro MD LAB - MICROBIOLOGY ORDERABLES F inal Result [facility] [address] [place] [address], [facility] [phone] from Last 3 Months or Most Recently Relevant to Health Maintenance Insurance * Guarantor: KASSIE COLEY Account Type Relation to Patient Date of Phone Billing Address Personal/Family [address] [place] [address] Care Teams Manager Academic Relationship Specialty Start Date End Date Randall Leong MD [address] [place] [phone] PCP - General Family Medicine 10/23/23
--- OUTSIDE RECORDS SUMMARY | 2025-01-15 14:19 | XMS_ITS | Encounter Summary ---
Author Organization [facility] Address [address] [place] [address] Care Team Providers Care Bad Credit Collector Name Role Phone Mavis Amado MD Unavailable Chiquis Rose MD Primary Care Provider [phone] Randall Leong MD Primary Care Provider [phone] Reason for Visit * Reason Onset Date Comments Scheduling 10/23/2012 Encounter Details Date Type Department Care Team (Late st Contact Info) Description 10/23/[address] [facility] Pediatrics - Orthopedics [address] [place] [id number] Carly Machado [facility] Scheduling Social History Tobacco Use Types Packs/Day Years Used Date Smoking Tobacco: Never Assessed Comments No Sex and Gender Information Value Date Recorded Sex Assigned at Not on file Legal Sex Female 5:40 AM CHEMICAL WEIGHER Gender Identity Female 05/03/2017 8:43 AM CDT Sexual Orientation Not on file documented as of this encounter Plan of Treatment Not on file documented as of this encounter Visit Diagnoses Not on filedocumented in this encounter Care Teams Bad Credit Collector Relationship Specialty Start Date End Date Mavis Amado MD PCP - Pediatrics 08/03/09 07/23/21 Chiquis Rose MD PCP - General 02/11/11 10/22/23 Randall Leong MD [address] [place] [phone] PCP - General Family Medicine 10/23/23 documented as of this encounter
[2025-01-15 14:23] VITALS: BP 157/95; PULSE 110; RESP 16; TEMP 37.3; O2SAT 97
--- OUTSIDE RECORDS SUMMARY | 2025-01-15 15:20 | XMS_ITS | Referral Summary ---
Author Organization [facility] [address] Address [address] [place] [phone] Care Team Providers Care Roll Or Tape Edge Machine Operator Name Role Phone Randall Leong MD Primary Care Provider [phone] Encounters Date Type Department Care Team Description 12/31/2024 3:15 PM CDT Procedure visit [facility] Otolaryngology [address] [place] [phone] Tammy Abdul Au.D. Sensorineural hearing loss (SNHL), bilateral (Primary Dx) 12/31/2024 3:00 PM CDT Office Visit [facility] Otolaryngology [address] [place] [phone] Zak Holden MD Sensorineural hearing loss [...] continuously as needed 9 Active OptiChamber Marilin [facility] spacer as directed 2 Active budesonide-form oteroL [...] problems. Assessment & Plan (05/09/2023 5:35 PM TIE KNITTER HELPER): She has an active infection on the [...] 05/09/2023 Assessment & Plan (05/09/2023 5:36 PM TIE KNITTER HELPER): On the right side she has either [...] amplification. Assessment & Plan (05/09/2023 5:34 PM TIE KNITTER HELPER): She has pretty significant bilateral hearing loss. [...] amplification. Assessment & Plan (06/01/2020 4:13 PM TIE KNITTER HELPER): Bilateral hearing aides in place - seeing [...] on file Legal Sex Female 12:54 AM TIE KNITTER HELPER Gender Identity Not on file Sexual Orientation Not on file Last Filed Vital Signs Vital Sign Reading Time Taken Comments Blood Pressure 136/74 05/16/2024 2:07 PM TIE KNITTER HELPER Pulse 98 05/16/2024 2:07 PM TIE KNITTER HELPER Temperature 36.3 C (97.3 F) 05/16/2024 2:07 PM TIE KNITTER HELPER Respiratory Rate 18 12/31/2024 3:12 PM CDT Oxygen Saturation 99% 05/16/2024 2:07 PM TIE KNITTER HELPER Inhaled Oxygen Concentration - - Weight 77.1 kg (170 lb) 12/31/2024 3:12 PM CDT Height 144.8 cm (4' 9) 12/31/2024 3:12 PM CDT Body Mass Index 36.79 12/31/2024 3:12 PM CDT Plan of Treatment Not on file [place] Care Teams Roll Or Tape Edge Machine Operator Relationship Specialty Start Date End Date Randall Leong MD PCP - General 07/06/20
--- OUTSIDE RECORDS SUMMARY | 2025-01-15 15:20 | XMS_ITS | Clinical Summary ---
Author Organization [facility] [employer] Address [address] [place] [address] Care Team Providers Care Meter And Service Line Inspector Name Role Phone Randall Leong MD Primary Care Provider [phone] Allergies No known active allergies Medications albuterol HFA (PROVENTIL HFA,VENTOLIN HFA,PROAIR HFA) 90 mcg/actuation inhaler Inhale 2 puffs every 4 (four) hours as needed 7 Active etonogestreL (NEXPLANON) 68 mg implant Inject 1 each (68 mg total) under the skin continuously as needed 9 Active OptiChamber Marilin [facility] spacer as directed 2 Active budesonide-form [...] problems. Assessment & Plan (05/09/2023 5:35 PM LASTEX OPERATOR): She has an active infection on the [...] 05/09/2023 Assessment & Plan (05/09/2023 5:36 PM LASTEX OPERATOR): On the right side she has either [...] amplification. Assessment & Plan (05/09/2023 5:34 PM LASTEX OPERATOR): She has pretty significant bilateral hearing loss. [...] amplification. 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 Sensorineural hearing loss (SNHL), bilateral (Primary Dx) 12/31/2024 3:00 PM CDT Office Visit [facility] Otolaryngology [address] [place] [phone] Zak Holden MD Sensorineural hearing loss (SNHL) [...] on file Legal Sex Female 12:54 AM LASTEX OPERATOR Gender Identity Not on file Sexual Orientation Not on file Obstetrics History Last Filed Vital Signs Vital Sign Reading Time Taken Comments Blood Pressure 136/74 05/16/2024 2:07 PM LASTEX OPERATOR Pulse 98 05/16/2024 2:07 PM LASTEX OPERATOR Temperature 36.3 C (97.3 F) 05/16/2024 2:07 PM LASTEX OPERATOR Respiratory Rate 18 12/31/2024 3:12 PM CDT Oxygen Saturation 99% 05/16/2024 2:07 PM LASTEX OPERATOR Inhaled Oxygen Concentration - - Weight 77.1 [...] [place] Care Teams Meter And Service Line Inspector Relationship Specialty Start Date End Date Randall Leong MD PCP - General 07/06/20
--- OUTSIDE RECORDS SUMMARY | 2025-01-15 15:20 | XMS_ITS | Encounter Summary ---
Author Organization [facility] Address [address] [place] [address] Care Team Providers Care Butcher'S Assistant Name Role Phone Mavis Amado MD Unavailable Chiquis Rose MD Primary Care Provider [phone] Randall Leong MD Primary Care Provider [phone] Reason for Visit * Reason Onset Date Comments Scheduling 10/23/2012 Encounter Details Date Type Department Care Team (Late st Contact Info) Description 10/23/2012 Telephone [facility] Pediatrics - Orthopedics [address] [place] [phone] Carly Machado [facility] Scheduling Social History Tobacco Use Types Packs/Day Years Used Date Smoking Tobacco: Never Assessed Comments No Sex and Gender Information Value Date Recorded Sex Assigned at Not on file Legal Sex Female 5:40 AM MERCHANDISING EXECUTION MANAGER Gender Identity Female 05/03/2017 8:43 AM CDT Sexual Orientation Not on file documented as of this encounter Plan of Treatment Not on file documented as of this encounter Visit Diagnoses Not on filedocumented in this encounter Care Teams Butcher'S Assistant Relationship Specialty Start Date End Date Mavis Amado MD PCP - Pediatrics 08/03/09 07/23/21 Chiquis Rose MD PCP - General 02/11/11 10/22/23 Randall Leong MD [address] [place] [phone] PCP - General Family Medicine 10/23/23 documented as of this encounter
--- NOTE | 2025-01-15 15:21 | ED.EAR ---
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 Patient reports having pain throughout her right ear over the past 2 days. Has been taking Tylenol and ibuprofen for the pain with minimal relief. States she had to remove her hearing aids due to the pain. Reports some drainage from the right ear. Denies fevers, cough, congestion. Related Data Allergies Allergy/AdvReac Type Severity Reaction Status Date / Time No Known Allergies Allergy Verified 01/15/25 14:36 Review of Systems Review of Systems: All systems reviewed & are unremarkable except as noted in HPI. 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 HEAD: Normocephalic, atraumatic. ENT: L TM clear. Right EAC is significantly swollen and erythematous. Diffuse tenderness throughout manipulation of right ear pinna and tragus. Some scant white drainage present in right EAC. RESPIRATORY: Airway patent, respirations nonlabored. CARDIOVASCULAR: Regular rate and rhythm MUSCULOSKELETAL: Moves all extremities. No gross deformities. SKIN: Warm, dry, normal color. NEURO: A&O X3. Speech clear. PSYCHIATRIC: Appropriate mood and affect. Normal interaction. Course Vital Signs Vital signs: Vital Signs Temperature 99.2 F 01/15/25 14:23 Pulse Rate 110 H 01/15/25 14:23 Respiratory Rate 16 01/15/25 14:23 Blood Pressure 157/95 H 01/15/25 14:23 Pulse Oximetry 97 01/15/25 14:23 Oxygen Delivery Room Air 01/15/25 14:23 Temperature 99.2 F 01/15/25 14:23 Pulse Rate 110 H 01/15/25 14:23 Respiratory Rate 16 01/15/25 14:23 Blood Pressure 157/95 H 01/15/25 14:23 Pulse Oximetry 97 01/15/25 14:23 Oxygen Delivery Room Air 01/15/25 14:23 Medical Decision Making MDM Narrative Medical decision making narrative: Exam consistent with R otitis externa. Ear wick placed. Ofloxacin ear drops started. Patient otherwise safe for discharge home. Advised to continue Tylenol/ibuprofen. Given return precautions. Discharged in stable condition. Medical Records Medical records reviewed: Yes I reviewed the external patient's medical records. Vital Signs Vital Signs: Vital Signs Temperature 99.2 F 01/15/25 14:23 Pulse Rate 110 H 01/15/25 14:23 Respiratory Rate 16 01/15/25 14:23 Blood Pressure 157/95 H 01/15/25 14:23 Pulse Oximetry 97 01/15/25 14:23 Oxygen Delivery Room Air 01/15/25 14:23 Temperature 99.2 F 01/15/25 14:23 Pulse Rate 110 H 01/15/25 14:23 Respiratory Rate 16 01/15/25 14:23 Blood Pressure 157/95 H 01/15/25 14:23 Pulse Oximetry 97 01/15/25 14:23 Oxygen Delivery Room Air 01/15/25 14:23 Discharge Plan Discharge Clinical Impression: Otitis externa Qualifiers: Otitis externa type: unspecified type Chronicity: acute Laterality: right Qualified Code(s): H60.501 - Unspecified acute noninfective otitis externa, right ear Patient Disposition: Home Condition: Stable Instructions: Antibiotic Form, Swimmer's Ear (ED), Earache (ED) Additional Instructions: Continue Tylenol/ibuprofen as needed for pain. Utilize antibiotic ear drops as prescribed. Allow ear wick to fall out on its own over the next few days. Return to the ED for new or worsening concerns. Patient Language: Nepalese Prescriptions: New ofloxacin 0.3 % drops 10 drp RIGHT EAR DAILY 7 Days Qty: 5 0RF Follow-up/Referrals: Salo,Randall Joyce MD [Primary Care Provider] - Time of Disposition: 15:22
--- OUTSIDE RECORDS SUMMARY | 2025-01-15 15:21 | XMS_ITS | Clinical Summary ---
Author Organization [facility] Address [address] [place] [address] Care Team Providers Care Tool Specialist Name Role Phone Randall Leong MD Primary Care Provider [phone] Source Comments [facility],non-owned Affiliates and Associated Physician Practices is amultiple site organization consisting of ambulatory clinics and hospital sitesin [place], [place], [place] and [place]. This disclosure is being madepursuant to the Care Everywhere program and may not contain all information available regarding this patient. Last updated 18.[facility] Allergies No known active allergies Medications * [...] 04/24/2012 COVID KATYA PRIMARY 18+YR 09/10/2020 Covid Brandicted primary monoval ent 12+ yr 0.3mL Purple cap 07/17/2021 DTaP VACCINE IM (6wk-6yrs) 02/21/2006,,2001,06/11,2001 HEP A PEDS 2 DOSE 02/12/2008,01/29/2007 HEP B VACCINE, PED/ADOL 2001,2001, HIB BOOSTER 06/02/2003, 2,2001,04/09 Human Papilloma Virus Susan valent Vaccine 06/28/2013,02/28/2013,12/27/2012 INFLUENZA A [id number] VACCINE 06/13/2009 INFLUENZA VACCINE 04/15/2019,05/10/2007 INFLUENZA VACCINE, [...] on file Legal Sex Female 5:40 AM CHILD DAY CARE CENTER WORKER Gender Identity Female 05/03/2017 8:43 AM CDT Sexual Orientation Not on file Last Filed Vital Signs Vital Sign Reading Time Taken Comments Blood Pressure 122/82 10/23/2023 2:47 PM CDT Pulse 95 03/16/2022 12:08 PM CDT Temperature 36.6 C (97.8 F) 07/24/2021 9:47 AM CHILD DAY CARE CENTER WORKER Respiratory Rate 29 02/25/2021 12:41 AM CDT [...] Where can I go for more information? [place] [employer] ( ) www.aap.org, HealthyChildren.org www.healthychildren.org Website and free downloadable tate for smartphones: http://www.Mensajeros Urbanos/ Use safety retraint in car Lifestyle On track( 019 3:57 PM CDT) No Sabrina Hernandez RN Medical Devices Implanted Type Area Medical Grade Shoemaker Device Identifier Shelf Expiration Date Model / Serial / Lot Wire Gde Thrd Tip 3.2mm Implanted:Qty: 1 on 11/13/2012 by Hao Wilkes MD at [facility] Left: Leg [employer] Pedicat[employer] / / Nail Fem Im Lt 8.0mm X 32cm Implanted:Qty: 1 on 11/13/2012 by Hao Wilkes MD at [facility] Left: Leg [employer] Ped[employer]at[employer] 08 / / 4.5 Screw Implanted:Qty: 1 on 11/13/2012 by Hao Wilkes MD at [facility] Left: Leg [id number] / / 4.5 Screw Implanted:Qty: 1 on 11/13/2012 by aHo Wilkes MD at [facility] [id number] / / Scrw Иван 4.5mm X 44mm Implanted:Qty: 1 on 11/13/2012 by Hao Wilkes MD at [facility] Left: Leg Ortho Pedicatrics [id number] / / Screw Implanted:Qty: 1 on 11/13/2012 by Hao Wilkes MD at [facility] [id number] / / Pin Tin Half Sh 5mm X 30mm Implanted:Qty: 2 on 11/13/2012 at [facility] [employer] [id number] / / Pin Half Tin Ln 5.0mm X 45mm Implanted:Qty: 1 on 11/13/2012 at [facility] [employer] [id number] / / Procedures Procedure Name Priority Date/Time [...] CDT) Case Report Gynecologic Cytology Report Case: [id number] Authorizing Provider: Mere Lazaro MD Collected: 10/23/2023 02:50 PM Ordering Location: [facility] - Received: 10/24/2023 12:02 PM PET CARE ASSOCIATE First Screen: Mikey Alva Pathologist: Osiel Ferreira [...] 9:46 AM CDT [facility] Interpretation REGIONAL VICE PRESIDENT LIFE SALES Atypical squamous cells of undetermined significance (ASC-US). 10/26/2023 9:46 AM CDT [facility] at 0945 CDT Other Predominance of Coccobacilli consistent with shift in vaginal yuri (vaginosis). 10/26/2023 9:46 AM CDT [facility] Pap Footnote The Pap Smear is a screening test. False positive and false negative results occur. Negative results do not preclude abnormalities, thus clinical correlation is required. This specimen was evaluated by the ThinPrep Imaging System along with an additional manual rescreening by a retort forker and/or pathologist. 10/26/2023 9:46 AM CDT [facility] Pathology/Cytolo gy VAGINA AND CERVIX, CS / Unknown 10/23/2023 2:50 PM CDT 10/24/2023 12:02 PM CDT Mere Lazaro MD LAB - PATHOLOGY/CYTOLOGY ORDERA BLES Final Result [facility] [address] [phone] * C. TRACHOMATIS + N. GONORRHOEAE MARLENE (03/16/2022 12:44 PM CDT) Chlamydia Trachomatis MARLENE Not detected Not detected 03/23/2022 7:17 AM CDT [facility] Neisseria Gonorrhoeae MARLENE Not detected [...] determined by the Molecular Diagnostics Laboratory at [facility]. Testing by Gen-Probe Aptima Combo 2 on [...] LAB - MICROBIOLOGY ORDERABLES F inal Result [facility] [address] [facility] [place] [address], [facility] [phone] from Last 3 Months or Most Recently Relevant to Health Maintenance Insurance * Guarantor: KASSIE COLEY Account Type Relation to Patient Date of Phone Billing Address Personal/Family [address] [place] [address] Care Teams Tool Specialist Relationship Specialty Start Date End Date Randall Leong MD [address] [place] [phone] PCP - General Family Medicine 10/23/23
== END 2025-01-15 15:33 | disposition home or self-care (01) ==
PROVIDERS: Emergency Provider Physician Assistant; PCP Family Medicine
DX: H60.501 Unspecified acute noninfective otitis externa, right ear (principal); J45.909 Unspecified asthma, uncomplicated
CPT/HCPCS: 99283; A9270

== ENCOUNTER 2025-02-28 21:54 | Emergency (ER) | payer BC, SELFPAY ==
--- OUTSIDE RECORDS SUMMARY | 2025-02-28 21:57 | XMS_ITS | Clinical Summary ---
Author Organization [facility] Address [address] [place] [address] Care Team Providers Care Membership Counselor Name Role Phone Randall Leong MD Primary Care Provider [phone] Source Comments [facility],non-owned Affiliates and Associated Physician Practices is amultiple site organization consisting of ambulatory clinics and hospital sitesin [place], [place], [place] and [place]. This disclosure is being madepursuant to the Care Everywhere program and may not contain all information available regarding this patient. 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 Gender Identity Female 05/03/2017 8:43 AM CDT Sexual Orientation Not on file Last Filed Vital Signs Vital Sign Reading Time Taken Comments Blood Pressure 122/82 10/23/2023 2:47 PM CDT Pulse 95 03/16/2022 12:08 PM CDT Temperature 36.6 C (97.8 F) 07/24/2021 9:47 AM WAREHOUSE DISTRIBUTION MANAGER Respiratory Rate 29 02/25/2021 12:41 AM CDT Oxygen Saturation 99% 03/16/2022 12:08 PM CDT Inhaled Oxygen Concentration - - Weight 88.5 kg (195 lb) 10/23/2023 2:47 PM CDT Height 144.8 cm (4' 9) 10/23/2023 2:47 PM CDT Body Mass Index 42.2 10/23/2023 2:47 PM CDT Plan of Treatment Health Maintenance Due Date Last Done Comments HIV SCREENING 01/20/2016 HEPATITIS C SCREENING 01/15/2019 DTAP/TDAP/TD VACCINES (7 - Td or Tdap) 12/27/2022 12/27/2012, 02/21/2006, 08/19/2002, Additional history exists CHLAMYDIA/GONORRHEA SCREENING 03/16/2023 03/16/2022, 03/10/2021 COVID-19 VACCINE ( season) 2024 07/17/2021, 09/10/2020 DEPRESSION SCREENING 07/03/2024 INFLUENZA VACCINE (#1) 2025 2, 05/05/2020, 04/15/2019, Additional history exists PAP SMEAR 10/22/2026 10/23/2023, 03/16/2022 ZOSTER VACCINE (1 of 2) 2051 HEPATITIS B VACCINE Completed 2001, 2001, 2001 PNEUMOCOCCAL VACCINE Completed 08/19/2002, 07/16/2002, 2001, Additional history exists HIB VACCINE Completed 06/02/2003, 11/01, 2001, Additional history exists HPV VACCINE Completed 06/28/2013, 02/01, 12/27/2012 MENINGOCOCCAL GROUPS A/C/Y/W VACCINE Completed 10/23/2017, 12/27/2012 MENINGOCOCCAL (Group B) VACCINE SHARED DECISION-MAKING Aged Out No longer eligible based on patient's age to complete this topic Goals Goal Patient Goal Type Associated Problems [...] Where can I go for more information? [place] [employer] ( ) www.aap.org, HealthyChildren.org www.healthychildren.org Website and free downloadable tate for smartphones: http://www.Vanilla [employer]reeze/ Use safety retraint in car Lifestyle On track( 019 3:57 PM CDT) No Sabrina Hernandez RN Medical Devices Implanted Type Area Foreign Food Specialty Cook Device Identifier Shelf Expiration Date Model / Serial / Lot Wire Gde Thrd Tip 3.2mm Implanted:Qty: 1 on 11/13/2012 by Hoa Wilkes MD at [facility] Left: Leg Orth[employer] Ped[employer]at[employer] / / Nail Fem Im Lt 8.0mm X 32cm Implanted:Qty: 1 on 11/13/2012 by Hao Wilkes MD at [facility] Left: Leg [employer] 08 / / 4.5 Screw Implanted:Qty: 1 on 11/13/2012 by Hao Wilkes MD at [facility] Left: Leg [id number] / / 4.5 Screw Implanted:Qty: 1 on 11/13/2012 by Hao Wilkes MD at [facility] [id number] / / Scrw Иван 4.5mm X 44mm Implanted:Qty: 1 on 11/13/2012 by Hao Wilkes MD at [facility] Left: Leg Ortho Pedicatrics [id number] / / Screw Implanted:Qty: 1 on 11/13/2012 by Hao Wilkes MD at [facility] [id number] / / Pin Tin Half Sh 5mm X 30mm Implanted:Qty: 2 on 11/13/2012 at [facility] [employer] [id number] / / Pin Half Tin Ln 5.0mm X 45mm Implanted:Qty: 1 on 11/13/2012 at [facility] [employer] [id number] / / Procedures Procedure Name Priority Date/Time [...] CDT) Case Report Gynecologic Cytology Report Case: [id number] Authorizing Provider: Mere Lazaro MD Collected: 10/23/2023 02:50 PM Ordering Location: [facility] - Received: 10/24/2023 12:02 PM WELDER MACHINE OPERATOR First Screen: Mikey Alva Pathologist: Osiel Ferreira [...] 9:46 AM CDT [facility] Interpretation DRUG ABUSE PROGRAM COORDINATOR Atypical squamous cells of undetermined significance (ASC-US). 10/26/2023 9:46 AM CDT [facility] at 0945 CDT Other Predominance of Coccobacilli consistent with shift in vaginal yuri (vaginosis). 10/26/2023 9:46 AM CDT [facility] Pap Footnote The Pap Smear is a screening test. False positive and false negative results occur. Negative results do not preclude abnormalities, thus clinical correlation is required. This specimen was evaluated by the ThinPrep Imaging System along with an additional manual rescreening by a tool technician and/or pathologist. 10/26/2023 9:46 AM CDT [facility] Pathology/Cytolo gy VAGINA AND CERVIX, CS / Unknown 10/23/2023 2:50 PM CDT 10/24/2023 12:02 PM CDT Mere Lazaro MD LAB - PATHOLOGY/CYTOLOGY ORDERA BLES Final Result [facility] [address] [phone] * C. TRACHOMATIS + N. GONORRHOEAE MARLENE (03/16/2022 12:44 PM CDT) Chlamydia Trachomatis MARLENE Not detected Not detected 03/23/2022 7:17 AM CDT [facility] Neisseria Gonorrhoeae MARLENE Not [...] determined by the Molecular Diagnostics Laboratory at [facility]. Testing by Gen-Probe Aptima Combo 2 [...] LAB - MICROBIOLOGY ORDERABLES F inal Result [facility] [address] [facility] [place] [address], [facility] [phone] from Last 3 Months or Most Recently Relevant to Health Maintenance Insurance * Guarantor: KASSIE COLEY Account Type Relation to Patient Date of Phone Billing Address Personal/Family [address] [place] [address] Care Teams Membership Counselor Relationship Specialty Start Date End Date Randall Leong MD [address] [place] [phone] PCP - General Family Medicine 10/23/23
--- OUTSIDE RECORDS SUMMARY | 2025-02-28 21:57 | XMS_ITS | Encounter Summary ---
Author Organization [facility] Address [address] [address] Care Team Providers Care Water Pollution Control Technician Name Role Phone Mavis Amado MD Unavailable Chiquis Rose MD Primary Care Provider [phone] Randall Leong MD Primary Care Provider [phone] Reason for Visit * Reason Onset Date Comments Scheduling 10/23/2012 Encounter Details Date Type Department Care Team (Late st Contact Info) Description 10/23/2012 Telephone [facility] Pediatrics - Orthopedics [address] [place] [phone] Carly Machado [facility] Sched[place] Social History Tobacco Use Types Packs/Day Years Used Date Smoking Tobacco: Never Assessed Comments No Sex and Gender Information Value Date Recorded Sex Assigned at Not on file Legal Sex 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
[2025-02-28 22:00] VITALS: BP 120/72; PULSE 105; RESP 20; TEMP 36.8; O2SAT 98
--- OUTSIDE RECORDS SUMMARY | 2025-02-28 22:12 | XMS_ITS | Clinical Summary ---
Author Organization [facility] [employer] Address [address] [place] [address] Care Team Providers Care Mental Retardation Aide Name Role Phone Randall Leong MD Primary Care Provider [phone] Allergies No known active allergies Medications albuterol HFA (PROVENTIL HFA,VENTOLIN HFA,PROAIR HFA) 90 mcg/actuation inhaler Inhale 2 puffs every 4 (four) hours as needed 7 Active etonogestreL (NEXPLANON) 68 mg implant Inject 1 each (68 mg total) under the skin continuously as needed 9 Active OptiChamber Marilin [facility] spacer as directed 2 Active budesonide-form oteroL (SYMBICORT) 160-4.5 mcg/actuation inhaler Inhale 2 puffs 2 (two) times a day Rinse mouth with water after use. Do not swallow. 9500 g 2 2 Active Additional Information Patient not taking.Reported on 01/28/2025 Active Problems Problem Noted Date Diagnosed Date Recurrent acute suppurative otitis media of right ear without spontaneous rupture of tympanic membrane 01/30/2025 Assessment & Plan (01/30/2025 2:58 PM CDT): I do not find any further evidence of infection. I recommended keeping the ear dry. No need for further intervention. She should wear an ear plug when she is around water. She understands that. Perforation of right tympanic membrane Assessment & Plan (01/28/2025 1:13 PM CDT): I do not find any further evidence of infection. She does have a small perforation superiorly involving the right tympanic membrane. I recommended that she wear an ear plug if she is swimming. Call if she has any further problems. Morbid obesity with BMI of 40.0-44.9, adult 07/04 Otitis externa 05/09/2023 Assessment & Plan (01/05/2025 2:42 PM CDT): She has slight moisture involving the left ear canal. After cleaning I applied CSF powder to that ear. Told him to keep it dry. Follow up if there are any problems. Assessment & Plan (05/09/2023 5:35 PM PROCUREMENT DIRECTOR): She has an active infection on the [...] 05/09/2023 Assessment & Plan (05/09/2023 5:36 PM PROCUREMENT DIRECTOR): On the right side she has either [...] amplification. Assessment & Plan (05/09/2023 5:34 PM PROCUREMENT DIRECTOR): She has pretty significant bilateral hearing loss. [...] amplification. Assessment & Plan (06/01/2020 4:13 PM PROCUREMENT DIRECTOR): Bilateral hearing aides in place - seeing ENT [place] de Meeks syndrome 07/08/2009 Resolved Problems Problem Noted Date Diagnosed Date Resolved Date Annual physical exam 08/04/2022 024 Encounters Date Type Department Care Team Description 02/25/2025 4:00 PM CDT Procedure visit [facility] [address] [place] [phone] Tammy Abdul Au.D. Fitting and adjustment of hearing aid (Primary Dx) 01/28/2025 2:30 PM CDT Procedure visit [facility] [address] [place] [phone] Tammy Abdul Au.D. Fitting and adjustment of hearing aid (Primary Dx) 01/28/2025 1:00 PM CDT Office Visit [facility] [address] [place] [phone] Zak Holden MD Perforation of right tympanic membrane (Primary Dx); Recurrent acute suppurative otitis media of right ear without spontaneous rupture of tympanic membrane 01/16/[address] [facility] [address] [place] [phone] Lizzie Whitlock LPN ER at [facility] yesterday 12/31/2024 3:15 PM CDT Procedure visit [facility] [address] [place] [phone] Tammy Abdul Au.D. Sensorineural hearing loss (SNHL), bilateral (Primary Dx) 12/31/2024 3:00 PM CDT Office Visit [facility] [address] [place] [phone] Zak Holden MD Sensorineural hearing loss (SNHL) [...] on file Legal Sex Female 12:54 AM PROCUREMENT DIRECTOR Gender Identity Not on file Sexual Orientation Not on file Obstetrics History Last Filed Vital Signs Vital Sign Reading Time Taken Comments Blood Pressure 136/74 05/16/2024 2:07 PM PROCUREMENT DIRECTOR Pulse 98 05/16/2024 2:07 PM PROCUREMENT DIRECTOR Temperature 36.3 C (97.3 F) 05/16/2024 2:07 PM PROCUREMENT DIRECTOR Respiratory Rate 18 01/28/2025 1:05 PM CDT Oxygen Saturation 99% 05/16/2024 2:07 PM PROCUREMENT DIRECTOR Inhaled Oxygen Concentration - - Weight 77.1 kg (170 lb) 01/28/2025 1:05 PM CDT Height 144.8 cm (4' 9) 01/28/2025 1:05 PM CDT Body Mass Index 36.79 01/28/2025 1:05 PM CDT Plan of Treatment Health Maintenance Due Date Last Done Comments Cervical Cancer Screening 2001 Hepatitis C Screening 2001 DTaP/Tdap/Td Vaccine (7 - Td or Tdap) 12/27/2022 12/27/2012, 02/21/2006, 08/19/2002, Additional history exists Regular Well Visit/Exam 18-64 08/04/2023 08/04/2022 Covid-19 Vaccine (3 - 2023-2 5 season) 2024 07/17/2021, 09/10/2020 Influenza Vaccine (#1) 2025 4, 07/17/2021, 05/05/2020, Additional history exists Depression Screening 05/16/2025 05/16/2024, 11/24/2023, 11/10/2023, Additional history exists Hepatitis B Screening Completed 2001 , 2001, 2001 Pneumococcal vaccine <65 Completed 003, 07/16/2002, 2001, Additional history exists Varicella Vaccines Completed 02/12/2008, 08/19/2002 HPV Vaccines Completed 06/28/2013, 02/01, 12/27/2012 [place] Care Teams Mental Retardation Aide Relationship Specialty Start Date End Date Randall Leong MD PCP - General 07/06/20
--- NOTE | 2025-02-28 22:13 | ED_ITS ---
HPI - Ear Problem General Chief complaint: Ear Stated complaint: hearing aid stuck in right ear Source: patient Mode of arrival: ambulatory Limitations: no limitations History of Present Illness HPI Narrative: This is a 25 year old female that presents to the ER for foreign body in right ear. Reports she is part of her hearing aid stuck in her ear. She was unable to remove it. Related Data Allergies Allergy/AdvReac Type Severity Reaction Status Date / Time No Known Allergies Allergy Verified 01/15/25 14:36 Review of Systems Review of Systems: All systems reviewed & are unremarkable except as noted in HPI and below PMFSH Past Medical History Medical History Asthma Brooke de Meeks syndrome Social History Social History Smoking status: Never smoker Alcohol intake: never Substance use: never Gender identity (if verbalized by the patient): Female Exam Narrative: GENERAL: Well-appearing, well-nourished, and in no acute distress. HEAD: Normocephalic, atraumatic. EYES: EOMI. ENT: Hearing aid part visualized in right external auditory canal NECK: Supple. No adenopathy or masses. EXTREMITIES: Normal range of motion. No edema. SKIN: Warm, dry, no rash. NEURO: No focal deficits. Alert and oriented x3. PSYCH: Normal mood and affect Course Vital Signs Vital signs: Vital Signs Temperature 98.2 F 02/28/25 22:00 Pulse Rate 105 H 02/28/25 22:00 Respiratory Rate 20 02/28/25 22:00 Blood Pressure 120/72 02/28/25 22:00 Pulse Oximetry 98 02/28/25 22:00 Temperature 98.2 F 02/28/25 22:00 Pulse Rate 105 H 02/28/25 22:00 Respiratory Rate 20 02/28/25 22:00 Blood Pressure 120/72 02/28/25 22:00 Pulse Oximetry 98 02/28/25 22:00 Procedures FB Removal Ear Foreign Body #1: Foreign Body Removal Date: 02/28/25 Foreign Body Removal Time: 22:15 Location: ear canal (R) Foreign Body Suspected: other (Hearing a) TM intact pre-procedure: unable to visualize Foreign Body Removed: yes Foreign Body Removal Technique: curette Tympanic Membrane Intact Post Procedure: Yes Patient Tolerated Procedure: well and no complications Complications: none Medical Decision Making MDM Narrative Medical decision making narrative: Patient presents for part of her hearing aid stuck in her right ear, this was easily removed without complications Vital Signs Vital Signs: Vital Signs Temperature 98.2 F 02/28/25 22:00 Pulse Rate 105 H 02/28/25 22:00 Respiratory Rate 20 02/28/25 22:00 Blood Pressure 120/72 02/28/25 22:00 Pulse Oximetry 98 02/28/25 22:00 Temperature 98.2 F 02/28/25 22:00 Pulse Rate 105 H 02/28/25 22:00 Respiratory Rate 20 02/28/25 22:00 Blood Pressure 120/72 02/28/25 22:00 Pulse Oximetry 98 02/28/25 22:00 Critical Care Time Critical Care Time Critical Care Time: No Discharge Plan Discharge Clinical Impression: Foreign body in ear Qualifiers: Encounter type: initial encounter Laterality: right Qualified Code(s): T16.1XXA - Foreign body in right ear, initial encounter Patient Disposition: Home Condition: Stable Instructions: Ear Foreign Body (ED) Patient Language: Micronesian Prescriptions: No Action ofloxacin 0.3 % drops 10 drp RIGHT EAR DAILY 7 Days Qty: 5 0RF Follow-up/Referrals: Salo,Randall Joyce MD [Primary Care Provider, Unknown]
== END 2025-02-28 22:17 | disposition home or self-care (01) ==
PROVIDERS: Emergency Provider Physician Assistant; PCP Family Medicine
DX: T16.1XXA Foreign body in right ear, initial encounter (principal); J45.909 Unspecified asthma, uncomplicated; Q87.19 Other congenital malformation syndromes predominantly associated with short stature; W44.G1XA Audio device entering into or through a natural orifice, initial encounter
CPT/HCPCS: 69200; 99282